=== PATIENT | female | born 1940 | race Two or more races ===

== ENCOUNTER → 2022-07-15 | Outpatient (CLI) | payer MEDICARE, BC, SELFPAY ==
--- NOTE | 2022-07-15 | IMM_PTH ---
PATIENT: RITA PERRY LOC: [facility] U#:[id number] AGE/SX: 82/F ROOM: RE07/15/[address]: Dr. Jonny Macias DO : 1940 BED: DIS: 07/15/2022 SPEC #: [id number] RECD: 07/17/22 11:49 STATUS: KANNAN REQ #: [id number] TRISH: 07/15/22 00:[address]: Jonny Macias DEPT: IMMUNOHISTOCHEMISTRY RECD BY: Nicki Wilson Tissues: Intervertebral disc, NOS Procedures: BCL-2 (add) CD20 (add) CD3 (add) CD43 (add) CD45 (add) CD5 (add) CD79A (add) CK20 (add) CK7 (add) KI-67 (add) Pankeratin (initial) PHYSICIAN & INSTITUTION [facility] [facility] [id number] SPECIMEN INFORMATION: Tissue Source: L3 bone Clinical Info: Compression fracture of L3 Specimen Number: [id number] CPT code: 04839, 66814 x10 METHODOLOGY: Deparaffinized sections of prefer/formalin-fixed tissue or PAP/DQ stained slides are incubated with monoclonal/polyclonal antibodies/oligonucleotide probes. Localization is made via biotin free immunoperoxidase method. Appropriate controls are performed and reacted as expected. Results on target cell population are indicated in the following table: RESULTS: ANTIBODY / CLONE RESULT AE1-3 (AE1/AE3/PCK26) negative CK7 (OV-TL12/30) negative CK20 (KS20.8) negative, focal CD3 (PS1) positive CD5 (SP10) positive CD20 (L26) positive CD43 (L60) positive CD45 (RP2/18) positive CD79a (11E3) positive, focal BCL-2 (bcl-2/100/D5) positive Ki-67 (30-9) negative These tests were developed and their performance characteristics determined by [facility]. They may not have been cleared or approved by the [place]. Food and Drug Administration. The FDA has determined that such clearance or approval is not necessary. The above immunohistochemical/dualISH markers are ordered and reviewed by the Pathologist. INTERPRETATION: Compression fracture of L3, bone biopsy: Polytypic (benign) lymphoid aggregates. AM:brian 07/18/2022
--- NOTE | 2022-07-15 07:50 | BONBX_PTH ---
PATIENT: RITA PERRY LOC: [facility] U#:[id number] AGE/SX: 82/F ROOM: RE07/15/[address]: Dr. Jonny Macias DO : 1940 BED: DIS: 07/15/2022 SPEC #: [id number] RECD: 07/15/22 14:56 STATUS: KANNAN JIHAN #: [id number] TRISH: 07/15/22 07:[address]: Jonny Macias DEPT: SURGICAL PATHOLOGY RECD BY: Rios Lobo ENTERED: 07/16/22 07:18 SP TYPE: Bone OTHR DR: MICHELLE Tissues: Vertebra, NOS Procedures: Decalcification bone/plaque Surgery Specimen Level V HEADER OPERATION: Kyphoplasty L3 PRE-OP DIAGNOSIS: Compression fracture of L3 TISSUE SUBMITTED: L3 bone MICROSCOPIC DIAGNOSIS Compression fracture of L3, bone biopsy: Reparative and reactive change consistent with organizing fracture site. No evidence of malignancy. See comment. AM:brian 07/17/2022 COMMENT Benign polytypic paratrabecular lymphoid aggregates are identified on immunohistochemistry ([id number]). Case has been reviewed in consultation with Dr. Silva who concurs with the above diagnosis. [id number] MICROSCOPIC DESCRIPTION Slides are reviewed. GROSS DESCRIPTION Received in fixative is one container labeled with the patient's name and designated L3 bone. The specimen consists of an elongated piece of bone measuring 1.5 cm in length and 0.2 cm in diameter. The entire specimen is submitted in one cassette after decalcification. / SJ:brian 07/16/2022 TC:4 CPT: 09027, 62027
== END | disposition home or self-care (01) ==
LOC: LABSPEC 16:10
PROVIDERS: Referring Provider Orthopaedic Surgery; Visit Provider Orthopaedic Surgery
DX: S32.030A Wedge compression fracture of third lumbar vertebra, initial encounter for closed fracture (principal)
CPT/HCPCS: 88307; 88311; 88341; 88342